=== PATIENT | male | born 1955 | race Two or more races ===

== ENCOUNTER 2019-06-29 07:08 | Day surgery (SDC) | payer OTHER ==
[~2019-06-29] VITALS: Ht 170.2 cm; Wt 81.6 kg
[2019-06-29] MEDS ORDERED: fentaNYL CITRATE 100 MCG/2 ML VL ONE (07:32)
[2019-06-29] MEDS ORDERED: MIDAZOLAM HCL 1MG/1ML-2 ML VIAL ONE (07:32)
[2019-06-29] MEDS ORDERED: MEPERIDINE HCL (25 MG/ML) 1ML VIAL ONE (07:32)
[2019-06-29] MEDS ORDERED: CIPROFLOXACIN 400MG/200ML 200 ML IV ONE (07:40)
[2019-06-29] MEDS ORDERED: MIDAZOLAM HCL 1MG/1ML-2 ML VIAL IV PRN (07:45)
[2019-06-29] MEDS ORDERED: LABETALOL HCL 5 MG/ML 4ML SYRINGE IV PRN (07:45)
[2019-06-29] MEDS ORDERED: MORPHINE SULFATE 4 MG/ML SYR/VIAL IV PRN (07:45)
[2019-06-29] MEDS ORDERED: ePHEDrine SULFATE 50 MG/ML AMP IV PRN (07:45)
[2019-06-29] MEDS ORDERED: KETOROLAC TROMETH 30 MG/ML 1ML VIAL IV ONE (07:45)
[2019-06-29] MEDS ORDERED: HYDROmorphone HCL 2 MG/ML VL IV PRN (07:45)
[2019-06-29] MEDS ORDERED: ONDANSETRON HCL 4 MG/2 ML VIAL IV PRN (07:45)
[2019-06-29] MEDS ORDERED: DexAMETHasone SOD PHOS 10MG/1ML VIAL INJ ONE (07:56)
[2019-06-29] MEDS ORDERED: PROPOFOL 10 MG/ML 20 ML IV ONE (07:56)
[2019-06-29 09:05] VITALS: BP 111/62
== END 2019-06-29 09:25 | disposition home or self-care (01) ==
LOC: SUR 07:08
PROVIDERS: ATTEND Urology
DX: N40.1 Benign prostatic hyperplasia with lower urinary tract symptoms (principal); C61 Malignant neoplasm of prostate
CPT/HCPCS: 52204; 55700; 76942; 88305; 88342; C1769; J0744; J1100; J2175; J2250; J2704; J3010; J7030

== ENCOUNTER → 2020-04-23 | Outpatient (CLI) | payer OTHER ==
[~2020-04-23] MED LIST: BICA50TA13 PO; FINA5TAB4 PO; POM SC; TAMS0.4C36 PO
== END | disposition home or self-care (01) ==
LOC: CT 08:37
DX: C61 Malignant neoplasm of prostate (principal); K40.90 Unilateral inguinal hernia, without obstruction or gangrene, not specified as recurrent; G95.89 Other specified diseases of spinal cord; N40.0 Benign prostatic hyperplasia without lower urinary tract symptoms; K57.30 Diverticulosis of large intestine without perforation or abscess without bleeding; R59.9 Enlarged lymph nodes, unspecified
CPT/HCPCS: 74176

== ENCOUNTER 2020-07-16 15:12 | Inpatient (IN) | payer OTHER ==
[~2020-07-16] VITALS: Ht 170.2 cm; Wt 84.9 kg
--- NOTE | 2020-07-16 14:18 | NUR ---
Direct Admit Telephone orders received from Dr. Izaguirre regarding patients admission and entered in [facility]. Addendum: 07/16/20 at 1823 by SYEDA PERDOMO RN Time 1618 and not 1418
--- NOTE | 2020-07-16 14:45 | NUR ---
IV insertion IV access obtained, via clean sterile technique by inserting 22 gauge catheter at right forearm after 1 attempt. IV secured properly. No trauma to site. Patient tolerated well. Addendum: 07/16/20 at 1824 by SYEDA PERDOMO RN time 1645 and not 1445
[2020-07-16] MEDS ORDERED: NITROGLYCERIN 0.4 MG SL TAB SL PRN (16:15)
[2020-07-16] MEDS ORDERED: HYDROcodone-ACET 10/325MG TAB PO PRN (16:15)
[2020-07-16] MEDS ORDERED: MORPHINE SULF INJ 2 MG/ML SYRINGE 1ML IV PRN (16:15)
[2020-07-16 16:49] VITALS: BP 169/90
[2020-07-16] MEDS ORDERED: TAMS0.4C36 PO (17:05)
[2020-07-16] MEDS ORDERED: FINA5TAB4 PO (17:05)
[2020-07-16] MEDS ORDERED: POM SC (17:05)
[2020-07-16] MEDS ORDERED: BICA50TA13 PO (17:05)
--- NOTE | 2020-07-16 17:09 | NUR ---
COVID In house COVID swab collected and taken to the [facility].
[2020-07-16 17:41] LABS: Basophils # (auto) 0 10 ^3/uL (0-0.2); Basophils % (auto) 0.5 % (0.0-2.0); Eosinophils # (auto) 0.1 10 ^3/uL (0-0.8); Eosinophils % (auto) 1.5 % (0.0-7.0); Hematocrit 36.9 % (41.0-53.0); Hemoglobin 12.8 g/dL (13.5-17.5); Lymphocytes # (auto) 2.3 10 ^3/uL (0.4-5.4); Lymphocytes % (auto) 43.9 % (10.0-50.0); Mean Corpuscular Hemoglobin 29.8 pg (28.0-32.0); Mean Corpuscular Hgb Conc. 34.8 g/dL (32.0-36.0); Mean Corpuscular Volume 85.8 fL (80.0-100.0); Monocytes # (auto) 0.5 10 ^3/uL (0-1.3); Monocytes % (auto) 9.7 % (0.0-12.0); Neutrophils # (auto) 2.3 10 ^3/uL (1.6-8.6); Neutrophils % (auto) 44.4 % (37.0-80.0); Nucleated Red Blood Cells % 0.1 %; Platelet Count (auto) 246 10^3/uL (140-450); Red Cell Distribution Width 13.4 % (11.8-14.3); White Blood Cell 5.2 10^3/uL (4.4-10.8)
[2020-07-16 17:47] LABS: Albumin 3.9 g/dL (3.4-5.0); Calcium 8.7 mg/dL (8.5-10.1); Potassium 3.6 mmol/L (3.5-5.1)
--- NOTE | 2020-07-16 17:47 | NUR ---
Elevated blood Pressure Notified Hospitalist of elevated blood pressure, telephone orders received and entered in eMAR. Orders received to resume 3 of the 4 home medications that patient takes.
[2020-07-16 17:49] LABS: INR 1.03 (0.9-1.15); Partial Thromboplastin Time 25.9 sec (23.0-31.2)
[2020-07-16 17:52] LABS: BUN/Creatinine Ratio 17.9; Bilirubin, Total 0.3 mg/dL (0.2-1.0); Total Protein 6.7 g/dL (6.4-8.2)
[2020-07-16] MEDS ORDERED: amLODIPine BESYLATE 5 MG TAB PO ONE (18:00)
[2020-07-16 22:00] VITALS: BP 143/82
[2020-07-17 05:00] VITALS: BP 157/84
--- NOTE | 2020-07-17 07:30 | NUR ---
RECEIVED REPORT FROM NIGHT NURSE. PATIENT RESTING IN BED, NO DISTRESS NOTED. GUARD AT BEDSIDE. SHACKLES TO BILATERAL ANKLES, NO SKIN BREAKDOWN NOTED. HANDCUFF TO LEFT WRIST, NO SKIN BREAKDOWN NOTED. WILL CONTINUE TO MONITOR.
[2020-07-17 08:57] VITALS: BP 145/86
[2020-07-17] MEDS: FINASTERIDE 5 MG TAB PO SCH (10:13)
[2020-07-17] MEDS: ENOXAPARIN SOD 40 MG/0.4 ML SYRINGE SC SCH (10:14)
[2020-07-17] MEDS: amLODIPine BESYLATE 5 MG TAB PO SCH (10:14)
[2020-07-17] MEDS: BICALUTAMIDE 50 MG TAB PO SCH (10:14)
--- NOTE | 2020-07-17 12:20 | NUR ---
DOCTOR CHAPARRO AT BEDSIDE.
[2020-07-17 12:50] VITALS: BP 156/91
[2020-07-17 17:00] VITALS: BP 155/80
[2020-07-17] MEDS: TAMSULOSIN HYDROCHLORIDE 0.4 MG CAP PO SCH (18:37)
[2020-07-17 21:20] VITALS: BP 152/89
[2020-07-18 05:30] VITALS: BP 128/76
[2020-07-18 09:00] VITALS: BP 135/91
[2020-07-18] MEDS ORDERED: ZOLEDRONIC ACID 4 MG in SODIUM CHL 0.9% 100 ML IV ONE (09:15)
[2020-07-18] MEDS ORDERED: LEUPROLIDE 7.5 MG SC ONE (10:15)
[2020-07-18] MEDS: FINASTERIDE 5 MG TAB PO SCH (11:28)
[2020-07-18] MEDS: amLODIPine BESYLATE 5 MG TAB PO SCH (11:28)
[2020-07-18] MEDS: ENOXAPARIN SOD 40 MG/0.4 ML SYRINGE SC SCH (11:28)
[2020-07-18] MEDS: BICALUTAMIDE 50 MG TAB PO SCH (11:29)
[2020-07-18 13:00] VITALS: BP 137/74
--- NOTE | 2020-07-18 13:25 | NUR ---
IV insertion IV access obtained, via clean sterile technique by inserting 20 gauge catheter at left forearm after 1 attempt. IV secured properly. No trauma to site. Patient tolerated well. Addendum: 07/18/20 at 1336 by NEPTALI ROSADO RN RN 22 gauge to left hand.
--- NOTE | 2020-07-18 13:32 | NUR ---
Off unit to CT
[2020-07-18 17:00] VITALS: BP 143/77
[2020-07-18] MEDS: TAMSULOSIN HYDROCHLORIDE 0.4 MG CAP PO SCH (17:27)
[2020-07-18] MEDS: CALCIUM W/VIT D (600MG/400IU) TAB PO SCH (18:57)
--- NOTE | 2020-07-18 19:45 | NUR ---
RECEIVED PATIENT FROM DAY SHIFT RN. PATIENT RESTING IN BED. NO S/S OF DISTRESS NOTED. DENIED PAIN AT THIS TIME. POC INSTRUCTED AND ENCOURAGED PATIENT TO CALL FOR [employer] IF NEEDED. BED IN LOWEST POSITION WITH SIDE RAILS UP X 2. CALL [facility] WITHIN REACH. ALARM ON. GUARDS AT BEDSIDE. CONTINUE TO MONITOR FOR CHANGES Q1H AND PRN.
[2020-07-18 22:00] VITALS: BP 130/74
--- NOTE | 2020-07-19 01:45 | NUR ---
PATIENT SLEEPING. NO S/S OF DISTRESS NOTED. CONTINUE TO MONITOR.
[2020-07-19 05:00] VITALS: BP 144/84
[2020-07-19 09:00] VITALS: BP 139/96
[2020-07-19] MEDS: amLODIPine BESYLATE 5 MG TAB PO SCH (09:00)
[2020-07-19] MEDS: FINASTERIDE 5 MG TAB PO SCH (09:00)
[2020-07-19] MEDS: BICALUTAMIDE 50 MG TAB PO SCH (09:01)
[2020-07-19] MEDS: CALCIUM W/VIT D (600MG/400IU) TAB PO SCH (09:01)
[2020-07-19] MEDS: ENOXAPARIN SOD 40 MG/0.4 ML SYRINGE SC SCH (09:02)
[2020-07-19 13:00] VITALS: BP 145/80
--- NOTE | 2020-07-19 14:38 | NUR ---
DISCHARGE INSTRUCTIONS GIVEN TO PT. PT VERBALIZED UNDERSTANDING FOR FOLLOW UP CARE AT FACILITY WITH MD. EDUCATIONAL MATERIAL PROVIDED, ALL QUESTIONS AND CONCERNS ADDRESSED. CLINICAL PACKET PROVIDED TO GUARD. IV CATHETER DC'D CATHETER INTACT, NO PHLEBITIS.
== END 2020-07-19 15:00 | DRG 723 ==
LOC: CENTRAL 15:12
PROVIDERS: ADMIT Internal Medicine; ATTEND Internal Medicine
DX: C61 Malignant neoplasm of prostate (principal); C79.51 Secondary malignant neoplasm of bone; Z85.46 Personal history of malignant neoplasm of prostate; Z83.3 Family history of diabetes mellitus; M54.5 Low back pain; Z20.828 Contact with and (suspected) exposure to other viral communicable diseases
CPT/HCPCS: 36415; 71045; 78306; 80053; 84154; 84443; 85025; 85610; 85730; 93005; G0378; J3489; J9217